=== PATIENT | female | born 1970 | race Caucasian/White ===

== ENCOUNTER → 2020-03-03 09:04 | Outpatient (CLI) | payer OTHER, SELFPAY ==
--- NOTE | ~2020-03-03 | XR_ITS ---
XR foot RT min 3V DATE: 03/03/2020 09:16 INDICATION: Right heel and posterior foot pain, ankle pain. TECHNIQUE: 4 views COMPARISON: None FINDINGS: There is prominent plantar and mild posterior calcaneal enthesopathy and there is prominent calcification of the distal Achilles tendon. There is mild osteoarthritis at the first metatarsophalangeal joint. No fracture or dislocation, periosteal reaction or bone destruction. IMPRESSION: Plantar and posterior calcaneal enthesopathy and distal Achilles tendon calcification Mild osteoarthritis at first metatarsophalangeal joint Reviewed, dictated and finalized at location A. [employer] IMPRESSION: Plantar and posterior calcaneal enthesopathy and distal Achilles te ndon calcification Mild osteoarthritis at first metatarsophalangeal joint
== END ==
PROVIDERS: PCP Family Medicine; Visit Provider Physician Assistant
DX: M19.071 Primary osteoarthritis, right ankle and foot (principal); M77.31 Calcaneal spur, right foot
CPT/HCPCS: 73630

== ENCOUNTER → 2020-08-16 03:05 | Outpatient (CLI) | payer SELFPAY ==
[2020-08-16 17:43] LABS: SARS-CoV-2 RNA PCR Negative
== END ==
PROVIDERS: PCP Family Medicine; Visit Provider Internal Medicine Critical Care Medicine
DX: R68.89 Other general symptoms and signs (principal); Z20.822 Contact with and (suspected) exposure to COVID-19
CPT/HCPCS: C9803; U0003; U0005

== ENCOUNTER → 2020-08-18 10:59 | Outpatient (CLI) | payer OTHER, SELFPAY ==
--- NOTE | 2020-09-03 14:48 | WPDSLEEPSTUD ---
Sleep Study Date of Study: 08/18/20 Ordering Provider: Michelle Crawley PA-C Interpreting Physician: Elsy Arriaza MD Sleep Study Type: Split Polysomnogram Height: 1.7 m Weight: 136.078 kg Body Mass Index: 47.0 Neck Circumference (inches): 19 Amasa: 7 Reason for Sleep Study Snoring, tired in the day Sleep History Oriana Morales is a 50 year old female with loud snoring; she has hypertension, self-catheterizes 5 times a day due to bladder retention, and has had a 15 lb weight gain in the last year. She wakes up feeling tired in the morning. She frequently snores loudly enough that others complain about it. She does not awaken at night with heartburn, belching or coughing. She does not awaken from sleep feeling short of breath. She occasionally has trouble sleep with a cold. She rarely gasp for breath at night. She does not have breathing problems at night observed by others. She occasionally sweats excessively at night and notices her heart pounding or beating irregularly night. She rarely falls asleep during the day, does not fall asleep involuntarily and does not fall asleep while driving. She does not have loss of muscle tone was strong emotion. She does not have daytime difficulties due to excessive sleepiness. She does not feel paralyzed on waking or falling asleep. She rarely has vivid dreamlike scenes upon awakening or falling asleep. She does not feel afraid to go to sleep. She rarely has nightmares. She occasionally remembers her dreams. She occasionally has racing thoughts. She occasionally feels sad or depressed. She frequently has anxiety. She does not have muscular tension. She rarely notices parts of her body jerking. She does not kick at night, does not have crawling or aching feelings in her legs and does not have any kind of leg pain at night. She rarely has morning jaw pain. She rarely grinds her teeth during sleep. She is not bothered by pain during the day nor she awakened by pain at night. She rarely wakes up feeling stiff in the morning, occasionally wakes up with sore achy muscles. She rarely wakes up with pain in the neck and spine. She has headaches. Normal bedtime 9:30 or 10:00 p.m.. It takes a variable amount of time for her to fall asleep. She wakes at 7:30 a.m. or 8 in the morning. She wakes up several times during the night. It may take anywhere between 15 minutes to an hour for her to return to sleep office she is waiting up for her teenagers at night. She does not usually take naps. A short nap might be refreshing. She is drowsy in the morning for an hour. She feels better in the evening compared other times of day Habits: Never smoked tobacco. Caffeine 1 serving of tea daily. No alcohol or recreational drugs. [facility] Past Medical History Medical History (Updated 09/08/20 @ 10:55 by Elsy Arriaza MD) Abnormal colonoscopy (~07/2020) Repeat in 3 years, polyps Hypertension Thyroid nodule Surgical History Surgical History (Updated 09/03/20 @ 14:51 by Elsy Arriaza MD) H/O cardiac radiofrequency ablation Previous section S/P endometrial ablation Status post tonsillectomy Family History Family History Other Family history of malignant neoplasm of breast Family history of malignant neoplasm of ovary Social History Social History Second hand tobacco smoke exposure: No Alcohol intake: current Alcohol use details: seldom; socially Substance use: never Substance use type: does not use Agree to blood products: Yes Medications Home Medications Medication Instructions Recorded Confirmed Type losartan 100 1 tablet PO DAILY #30 tablet 05/16/20 08/20/20 Rx mg-hydrochlorothiazide 12.5 mg tablet potassium chloride 10 mEq See Rx Instructions .ROUTE 08/25/20 Rx capsule,extended release .COMPLEX #30 cap Sleep
[2020-09-08 11:13] VITALS: BMI 47.0
== END ==
PROVIDERS: PCP Family Medicine; Visit Provider Physician Assistant
DX: G47.33 Obstructive sleep apnea (adult) (pediatric) (principal)
CPT/HCPCS: 95811

== ENCOUNTER 2020-09-20 16:24 | Outpatient (CLI) | payer OTHER, SELFPAY ==
--- NOTE | 2020-09-20 16:58 | ECG_ITS ---
Measurements Intervals [place] Rate: 85 P: 53 MN: 167 QRS: -19 QRSD: 87 T: 40 QT: 366 QTc: 436 Interpretive Statements SINUS RHYTHM INCOMPLETE RIGHT BUNDLE BRANCH BLOCK POOR R WAVE PROGRESSION, ANTERIOR LEADS BASELINE WANDER- V3 BORDERLINE ECG Electronically Signed On 09-20-2020 20:15:25 CDT by Mu Hunt D.O.
== END 2020-09-20 16:25 | disposition home or self-care (01) ==
LOC: ANHCARD 16:28
PROVIDERS: PCP Family Medicine; Visit Provider Physician Assistant
DX: I10 Essential (primary) hypertension (principal); I45.10 Unspecified right bundle-branch block
CPT/HCPCS: 93005

== ENCOUNTER 2022-11-16 15:17 | Emergency (ER) | payer OTHER, SELFPAY ==
--- NOTE | ~2022-11-16 | CT_ITS ---
EXAMINATION: CT abdomen pelvis w con INDICATION: Right-sided abdominal pain TECHNIQUE: Computed tomographic images of the abdomen and pelvis were obtained after the administrati on of 100 cc of Omnipaque 350 intravenous contrast. The dose-length product (DLP) was 1094.96 mGy-cm. Automated exposure control and iterative reconstruction technique were employed. COMPARISON: 01/12/2013 FINDINGS: The lung bases are clear. The heart size is normal. There are changes of interval gastric b ypass surgery. A stone is present in the nondistended gallbladder. The liver, spleen, pancreas, and r ight adrenal gland are normal. A stable 11 mm mass of the left adrenal gland is consistent with an ad enoma. A moderate volume of colonic stool is present. The appendix is normal. No pathologically enlar ged abdominal or pelvic lymph nodes are identified. No free intraperitoneal gas or evidence of bowel obstruction. There is moderate thoracic and mild lumbar spondylosis. IMPRESSION: 1. No CT correlate for the patient's symptoms. 2. Cholelithiasis without evidence of cholecystitis. Reviewed, dictated and finalized at location F.
[2022-11-16 15:37] VITALS: BP 139/82; PULSE 74; RESP 16; TEMP 36.4; O2SAT 100
--- NOTE | 2022-11-16 17:20 | ED.ABDPAIN ---
HPI - Abdominal Pain General Chief Complaint: Abdominal Pain Stated Complaint: right sided abd pain Time Seen by Provider: 11/16/22 16:58 Source: patient Mode of arrival: ambulatory Limitations: no limitations History of Present Illness HPI narrative: Patient is a 52-year-old female, with PMH of gastric bypass surgery 2020, who presents to the ED with report of right sided abdominal pain. Patient reports she ate tuna with crackers and peppers for lunch around 1 PM today. She began having pain in her right sided upper abdomen approximately 45 minutes later. She states pain was fairly severe at first, worse with any type of movement. She tried taking Tums without significant relief. Pain began to improve on its own since being in the ED. Patient reports she has had similar pain intermittently over the last several months though the episodes were much less severe. Patient denies any other significant symptoms, denies nausea, vomiting, diarrhea, constipation, fevers, chest pain, difficulty breathing. Related Data Home Medications Medication Instructions Recorded Confirmed cetirizine 10 mg tablet (All Day 10 mg PO DAILY PRN 10/22/20 06/26/22 Allergy (cetirizine)) calcium carbonate 600 mg-vitamin tablet PO BID 06/26/22 06/26/22 D3 10 mcg (400 unit) chewable tablet (Calcium 600 with Vitamin D3) Allergies Allergy/AdvReac Type Severity Reaction Status Date / Time amoxicillin Allergy Unknown Unknown Verified 06/26/22 14:01 Sulfa (Sulfonamide Allergy Unknown Unknown Verified 06/26/22 14:01 Antibiotics) clavulanic acid AdvReac Severe Nausea Verified 06/26/22 14:01 [From Augmentin] meloxicam AdvReac Severe HYPERTENSIVE Verified 06/26/22 14:01 CRISIS NSAIDS (Non-Steroidal AdvReac Severe Bariatric Verified 06/26/22 14:01 Anti-Inflamma surgery Review of Systems Review of Systems: CONSTITUTIONAL: Denies fever, chills, or sweats. CARDIOVASCULAR: Denies chest pain. RESPIRATORY: Denies dyspnea. GASTROINTESTINAL: See HPI. GENITOURINARY: Denies dysuria or hematuria. SKIN: Denies rash or itching. MUSCULOSKELETAL: Denies back pain, joint pain, or myalgia. All systems reviewed & are unremarkable except as noted in HPI and below PMFSH Past Medical History Medical History Abnormal colonoscopy (~07/2020) Repeat in 3 years, polyps Hyperlipidemia Hypertension Prediabetes Thyroid nodule Surgical History Surgical History H/O cardiac radiofrequency ablation History of gastric bypass January 24, 2021 Previous section S/P endometrial ablation Status post gastric bypass for obesity Status post tonsillectomy Family History Family History Father Colon polyp Hypertension Grandparent Carcinoma of colon Cervical cancer Other Family history of malignant neoplasm of breast Family history of malignant neoplasm of ovary Social History Social History Smoking status: Never smoker Second hand tobacco smoke exposure: No Alcohol intake: current Alcohol use details: seldom; socially Substance use: never Substance use type: does not use Gender identity (if verbalized by the patient): Female Agree to blood products: Yes Exam Narrative: GENERAL: Well appearing, well-nourished, non-toxic, in no acute distress. HEAD: Normocephalic, atraumatic. NECK: Supple. No adenopathy, no masses. RESPIRATORY: Airway patent, respirations nonlabored. Clear to auscultation bilaterally, no rales, rhonchi, wheezing. CARDIOVASCULAR: Regular rate and rhythm without murmurs, rubs, or gallops. Radial pulses 2+ and equal bilaterally. ABDOMINAL: Soft, mild tenderness in right mid and lower abdomen. No significant epigastric tenderness. Nondistended, n
[2022-11-16 17:24] LABS: Basophils Absolute Auto 0.1 K/mm3 (0.0-0.1); Basophils Percent Auto 0.9 % (0.2-1.2); Eosinophils Absolute Auto 0.2 K/mm3 (0-0.3); Eosinophils Percent Auto 2.7 % (0-4.4); Hematocrit 41.5 % (37.0-47.0); Hemoglobin 14.4 g/dL (12.0-15.0); Immature Granulocyte Absolute 0.02 K/mm3 (0.00-0.031); Immature Granulocyte Percent A 0.3 % (0-0.5); Lymphocytes Absolute Auto 1.72 K/mm3 (0.9-3.2); Lymphocytes Percent Auto 26.2 % (18.3-44.2); Mean Corpuscular HGB Conc 34.7 g/dl (32-36); Mean Corpuscular Hemoglobin 30.7 pg (26-34); Mean Corpuscular Volume 88.5 fl (80-100); Mean Platelet Volume 10.9 fl (7.4-10.4); Monocytes Absolute Auto 0.4 K/mm3 (0.1-0.6); Monocytes Percent Auto 5.8 % (2.6-8.5); Neutrophils Absolute Auto 4.2 K/mm3 (1.3-6.7); Neutrophils Percent Auto 64.1 % (45.5-73.1); Platelet Count Result 220 k/mm3 (150-375); Red Blood Count 4.69 M/mm3 (4.2-5.4); Red Cell Distribution Width 12.4 % (11.5-14.5); White Blood Count 6.6 K/mm3 (4.5-10.0)
[2022-11-16 17:32] LABS: Alanine Aminotransferase 26 U/L (6-35); Albumin Level 4.3 g/dL (3.5-5.1); Alkaline Phosphatase 61 U/L (38-126); Anion Gap 7 mmol/L (8-16); Aspartate Amino Transferase 28 U/L (14-36); Bilirubin,Total 0.6 mg/dL (0.2-1.3); Blood Urea Nitrogen 22 mg/dL (7-17); Calcium 9.3 mg/dL (8.4-10.2); Carbon Dioxide 30 mmol/L (22-30); Chloride 102 mmol/L (98-107); Estimated Glomerular Filt Rate > 60; Glucose 94 mg/dL (65-110); Lipase 290 U/L (23-300); Potassium 4.2 mmol/L (3.4-5.0); Sodium 139 mmol/L (137-145)
[2022-11-16 17:42] LABS: Appearance Urine Clear (Clear); Bacteria Urine 4+ /hpf; Bilirubin Urine Negative (Negative); Blood Urine Negative (Negative); Color Urine Yellow (Yellow); Glucose Urine UA Negative (Negative); Ketones Urine Negative (Negative); Leukocyte Esterase Ur Negative LEU/UL (Negative); Nitrate Urine Positive (Negative); Non Pathogenic Casts 0-2; Protein Urine Negative (Negative); RBC Urine 0-2 /hpf (0-2); Specific Grav Ur 1.013 (1.001-1.035); Squamous Epithelial Cell Urine None seen /hpf (Few); Urobilinogen Urine 0.2 mg/dL (<2.0); WBC Urine 0-5 /hpf
[2022-11-16 17:53] LABS: Add Urine Microscopic? YES
[2022-11-16 19:00] LABS: Pregnancy On Board Control Positive; Urine Pregnancy Test Negative
[2022-11-16 21:20] VITALS: BP 134/86; PULSE 67; RESP 18; O2SAT 98
== END 2022-11-16 21:22 | disposition home or self-care (01) ==
PROVIDERS: Emergency Provider Physician Assistant; PCP Family Medicine
DX: K80.70 Calculus of gallbladder and bile duct without cholecystitis without obstruction (principal); R82.998 Other abnormal findings in urine; E78.5 Hyperlipidemia, unspecified; I10 Essential (primary) hypertension; R73.03 Prediabetes; Z98.84 Bariatric surgery status
CPT/HCPCS: 36415; 74177; 80053; 81001; 81025; 83690; 85025; 99284; Q9967

== ENCOUNTER 2023-11-24 13:58 | Emergency (ER) | payer OTHER, SELFPAY ==
[2023-11-24 14:28] VITALS: BP 118/77; PULSE 95; RESP 16; TEMP 37.4; O2SAT 100
--- NOTE | 2023-11-24 14:45 | ED.URI ---
HPI - URI/Sore Throat General Chief Complaint: Upper Respiratory Infection Stated Complaint: Sinus/Cough Time Seen by Provider: 11/24/23 14:46 Source: patient, RN notes reviewed and old records reviewed Mode of arrival: ambulatory Limitations: no limitations History of Present Illness HPI Narrative: 53-year-old female presents to the [facility] with complaints of sinus congestion and that started either Sunday or Sunday 5-6 days ago. States that she takes Tylenol. Does not normally take any decongestants. Does take Zyrtec daily. Treatments prior to arrival: acetaminophen Related Data Home Medications Medication Instructions Recorded Confirmed cetirizine 10 mg tablet (All Day 10 mg PO DAILY PRN 10/22/20 03/21/23 Allergy (cetirizine)) calcium carbonate 600 mg-vitamin tablet PO BID 06/26/22 03/21/23 D3 10 mcg (400 unit) chewable tablet (Calcium 600 with Vitamin D3) Allergies Allergy/AdvReac Type Severity Reaction Status Date / Time amoxicillin Allergy Unknown Unknown Verified 11/24/23 14:19 Sulfa (Sulfonamide Allergy Unknown Unknown Verified 11/24/23 14:19 Antibiotics) clavulanic acid AdvReac Severe Nausea Verified 11/24/23 14:19 [From Augmentin] meloxicam AdvReac Severe HYPERTENSIVE Verified 11/24/23 14:19 CRISIS NSAIDS (Non-Steroidal AdvReac Severe Bariatric Verified 11/24/23 14:19 Anti-Inflamma surgery Review of Systems Review of Systems: All systems reviewed & are unremarkable except as noted in HPI and below Constitutional: Constitutional: Reports no additional constitutional complaints Eyes: Eyes: Reports no additional eye complaints ENT: Reports as per HPI, Reports nasal discharge and Reports post nasal drip Cardiovascular: Cardiovascular: Reports no additional cardiovascular complaints, Denies chest pain and Denies dyspnea Respiratory: Respiratory: Reports as per HPI, Denies chest congestion, Reports cough and Denies dyspnea Gastrointestinal: Gastrointestinal: Reports no additional gastrointestinal complaints, Denies abdominal pain, Denies nausea and Denies vomiting Musculoskeletal: Musculoskeletal: Reports no additional musculoskeletal complaints Integumentary/Breasts: Skin/Breast: Reports system reviewed and no additional complaints, except as docu Neurologic: Reports system reviewed and no additional complaints, except as documented Psychiatric: Psychiatric: Reports no additional psychiatric complaints Allergic/Immunologic: Allergic/Immunologic: Reports no additional allergic/immunologic complaints PMFSH Past Medical History Medical History Abnormal colonoscopy (~07/2020) Repeat in 3 years, polyps Hyperlipidemia Hypertension Prediabetes Thyroid nodule Surgical History Surgical History H/O cardiac radiofrequency ablation History of gastric bypass January 24, 2021 Previous section S/P endometrial ablation Status post gastric bypass for obesity Status post tonsillectomy Family History Family History Father Colon polyp Hypertension Grandparent Carcinoma of colon Cervical cancer Other Family history of malignant neoplasm of breast Family history of malignant neoplasm of ovary Social History Social History Smoking status: Never smoker Second hand tobacco smoke exposure: No Alcohol intake: current Alcohol use details: seldom; socially Substance use: never Substance use type: does not use Gender identity (if verbalized by the patient): Female Agree to blood products: Yes Comments At the time of my signature, I reviewed and agree with the nursing past medical, surgical, social, and family history. There is no relevant family history pertinent to the patient complaint. Exam Const: General:
== END 2023-11-24 15:08 | disposition home or self-care (01) ==
PROVIDERS: Emergency Provider Nurse Practitioner; PCP Family Medicine
DX: R09.82 Postnasal drip (principal); J01.91 Acute recurrent sinusitis, unspecified; E78.5 Hyperlipidemia, unspecified; I10 Essential (primary) hypertension; R73.03 Prediabetes; E66.9 Obesity, unspecified; Z68.35 Body mass index [BMI] 35.0-35.9, adult; Z98.84 Bariatric surgery status
CPT/HCPCS: 99213; G0463

== ENCOUNTER 2024-01-15 08:50 | Outpatient (CLI) | payer OTHER, SELFPAY ==
--- NOTE | ~2024-01-15 | XR_ITS ---
XR knee RT min 4V Ordering provider: Marisel Alaniz MD History: . twisting injury 5 months ago medial side pain . Comparison: None. FINDINGS: BONES: No acute fracture or dislocation. JOINT SPACES: Osteoarthritic changes of the patellofemoral joint. SOFT TISSUES: Normal. IMPRESSION: No acute osseous abnormality right knee. Moderate osteoarthritic changes of the patellofemoral joint. Reviewed, dictated and finalized at location A. [employer]CH[employer]ICIAN
== END 2024-01-15 08:51 | disposition home or self-care (01) ==
PROVIDERS: PCP Family Medicine; Visit Provider Family Medicine
DX: M17.11 Unilateral primary osteoarthritis, right knee (principal)
CPT/HCPCS: 73564

== ENCOUNTER 2024-02-06 11:06 | Outpatient (CLI) | payer OTHER, SELFPAY ==
--- NOTE | ~2024-02-06 | MR_ITS ---
EXAMINATION: MR knee RT wo con DATE: 02/06/2024 11:42 INDICATION: Right knee pain TECHNIQUE: Magnetic resonance imaging (MRI) of the right knee was performed without intravenous contr ast. Sequences included coronal PD-weighted FSE, coronal PD-weighted FS FSE, sagittal T2-weighted FS E, sagittal PD-weighted FS FSE and axial PD weighted fat saturated FSE. COMPARISON: None. FINDINGS: Medial compartment: Medial meniscus is normal. Partial-thickness chondral ulceration and deep fissuring at the anterior t o central weightbearing medial femoral condyle with tiny focus of subarticular edema-like signal castro ge at the anterior weightbearing medial femoral condyle. Partial-thickness cartilage loss with smooth chondral surface and without degenerative subchondral changes along the medial and posterior margins of the medial tibial plateau. Lateral compartment: There is truncation of the normally sharp inner free edge at the posterior horn of the medial meniscu s consistent with likely very small vertical tear confined to the inner edge. Mild partial-thickness cartilage loss with smooth chondral surface and without degenerative subchondral changes at the media l side of the lateral tibial plateau along the shoulder the intercondylar eminence. Scattered deep ch ondral ulceration with associated small central subchondral osteophytes along the medial side of the central to posterior weightbearing lateral femoral condyle, along the posterior margin of the lateral femoral condyle and at the junction of the trochlear and weightbearing articular surfaces of the lat eral femoral condyle. Patellofemoral compartment: There is extensive full thickness cartilage loss with irregular cortical remodeling with subarticular edema-like and cystlike changes involving extensive portions of the lateral patellar facet and later al trochlea. Less severe partial thickness chondral ulceration and fissuring without degenerative sub chondral changes at the trochlear groove, medial trochlea and medial patellar facet. Moderate size ma rginal osteophytes are present. Ligaments and tendons: Anterior and posterior cruciate ligaments are normal. The fibular collateral ligament complex is norm al. There is mild thickening and mild increased signal the proximal medial collateral ligament withou t surrounding edema to suggest acute injury. Small enthesophytes at the patellar insertion of the dis ml quadriceps tendon. The extensor mechanism is otherwise normal. The visualized medial and lateral hamstring tendons as well as the iliotibial band are normal. Fluid: Physiologic amount of fluid in the joint space. No loose osteochondral bodies identified. Osseous/other: 5 mm lateral patellar subluxation. Bone alignment is otherwise normal. No fracture or pathologic jean ow replacing process. IMPRESSION: 1. Likely very small vertical tear along the inner free edge of the posterior horn of the lateral men iscus. 2. Tricompartmental osteoarthritis, mild to moderate and high-grade chondromalacia in the medial late ral compartments and severe with extensive high-grade chondral malacia the lateral aspect of the carvalho llofemoral compartment. Reviewed, dictated and finalized at location A. [employer] IMPRESSION: 1. Likely very small vertical tear along the inner free edge of the posterior h orn of the lateral meniscus. 2. Tricompartmental osteoarthritis, mild to moderate and high-grade chondromala lidia in the medial lateral compartments and severe with extensive high-grade cho ndral malacia the lateral aspect of the patellofemoral compartment.
== END 2024-02-06 11:07 | disposition home or self-care (01) ==
PROVIDERS: PCP Family Medicine; Visit Provider Family Medicine
DX: M17.11 Unilateral primary osteoarthritis, right knee (principal)
CPT/HCPCS: 73721

== ENCOUNTER 2024-05-13 08:24 | Outpatient (CLI) | payer OTHER, SELFPAY ==
--- NOTE | ~2024-05-13 | CT_ITS ---
EXAMINATION: CT abdomen pelvis wo/w con DATE: 05/13/2024 09:06 INDICATION: Right kidney mass. TECHNIQUE: Computed tomography (CT) of the abdomen and pelvis was performed without and with 100 mL O mnipaque 350 intravenous contrast. Automated exposure control and iterative reconstruction technique were employed. The dose-length product was 1803.34 mGy-cm. COMPARISON: CT abdomen and pelvis 11/16/2022, 01/12/2013 FINDINGS: The visualized portions of the lung bases are clear without pneumonia or pleural effusion. The heart size is normal. No pericardial effusion. The liver is normal. There are changes of cholecys tectomy. The spleen, pancreas, and right adrenal gland are normal. There is a 15 mm mass in left adre nal gland measuring low attenuation, consistent with an adenoma. There is a 19 mm mass of fat involvi ng right kidney, consistent with an angiomyolipoma. Left kidney is normal. There are no dilated loops of bowel. There are changes of gastric bypass procedure. The appendix is normal. There are no pathol ogically enlarged lymph nodes. There is no free intraperitoneal fluid. There is mild chronic anterior wedging of multiple thoracic vertebral bodies. There is moderate thoracic spondylosis and mild lumba r spondylosis. IMPRESSION: 1. 19 mm mass of fat involving right kidney, consistent with an angiomyolipoma. Reviewed, dictated and finalized at location B.
[2024-05-13 08:52] LABS: Estimated Glomerular Filt Rate > 60
== END 2024-05-13 08:25 | disposition home or self-care (01) ==
LOC: MICIMG 08:25
PROVIDERS: PCP Urology; Visit Provider Urology
DX: N28.89 Other specified disorders of kidney and ureter (principal)
CPT/HCPCS: 74178; Q9967